=== PATIENT | male | born 1985 | race Caucasian/White ===

== ENCOUNTER → 2016-12-12 08:07 | Outpatient (CLI) | payer OTHER | END | disposition home or self-care (01) | LOC: D.NM 08:07 | DX: R10.11 Right upper quadrant pain (principal) ==

== ENCOUNTER 2017-01-17 05:14 | Day surgery (SDC) | payer OTHER ==
[~2017-01-17] VITALS: Ht 193 cm; Wt 105.2 kg
[~2017-01-17 05:14] MED LIST: IBUPROFEN800 MG PO
[2017-01-17] MEDS ORDERED: ACETAMINOPHEN500 M1 PO (05:46)
[2017-01-17 05:54] LABS: BASOPHILS 0.4 % (0-2); EOSINOPHILS 1.7 % (0-7); HEMATOCRIT 43.6 % (42.0-54.0); HEMOGLOBIN 15.6 g/dL (13.5-17.5); IMMATURE GRANULOCYTES 0.1 % (0-5); LYMPHOCYTES 47.5 % (15-50); MCHC 35.8 g/dL (31.0-37.0); MCV 86.7 fL (80.0-100.0); MEAN PLATELET VOLUME 10.1 fL (7.4-10.4); MONOCYTES 6.3 % (2-11); PLATELET COUNT 229 10x3/uL (130-400); RBC 5.03 10x6/uL (4.20-6.10); RDW 12.6 % (11.5-14.5); WBC 7.7 10x3/uL (4.8-10.8)
[2017-01-17 06:02] VITALS: BP 144/94; Ht 193 cm; Wt 105.2 kg
[2017-01-17 06:10] LABS: APTT 27.6 SECONDS (22.8-39.4); INR 0.92 (0.85-1.17); PROTIME 12.2 SECONDS (11.6-15.0)
[2017-01-17 06:25] LABS: CALC OSMOLALITY 282 mosm/kg (275-300); CALCIUM 8.8 mg/dL (8.5-10.1); CARBON DIOXIDE 27.8 mmol/L (21.0-32.0); CHLORIDE - SERUM 104 mmol/L (98-107); CREATININE - SERUM 1.1 mg/dL (0.6-1.3); GLUCOSE 94 mg/dL (74-106); POTASSIUM - SERUM 3.8 mmol/L (3.5-5.1); SODIUM 142 mmol/L (136-145); UREA NITROGEN 13 mg/dL (7-18); eGFR NON AFRICAN AMERICAN 83 mL/min (90-120)
[2017-01-17] MEDS ORDERED: HYDROCODONE-APA1 TAB PO (08:49)
--- NOTE | 2017-01-18 14:41 | OP ---
PATIENT NAME: VAL CALLAWAY MEDICAL RECORD: [id number] :87 LOCATION:D.OPS ADMISSION DATE: SURGEON: RYLAND MCCORMICK MD DATE OF OPERATION: 01/17/2017 PREOPERATIVE DIAGNOSES: 1. Chronic cholecystitis. 2. Dncic-Dozmxogos-Xbguq syndrome. 3. Asthma. POSTOPERATIVE DIAGNOSES: 1. Chronic cholecystitis. 2. Lmnpd-Olwqliarg-Tddud syndrome. 3. Asthma. PROCEDURE: Laparoscopic cholecystectomy. SURGEON: Ryland Mccormick MD. REPORT OF PROCEDURE: The patient's abdomen was prepped and draped in sterile fashion. A cutdown was made on the superior aspect of the umbilicus, 0 Vicryls were placed on the fascia bilaterally and the fascia was incised with a 15-blade. I then bluntly entered the peritoneal cavity and placed a 12-mm Ishmael port. Under direct visualization, a 5 mm trocar was placed in the epigastrium and 2 more 5-mm trocars were placed in the right subcostal region. The gallbladder was grasped and elevated. The cystic artery and duct were dissected free and I had my critical view of safety. These structures were clipped proximally and distally and ligated in standard fashion. The gallbladder was then taken off the liver bed using electrocautery and placed into the right upper quadrant. Any bleeding from the liver bed was treated with electrocautery. We irrigated out the right upper quadrant and assured there was no sign of any bleeding or bile leakage. At this point, the ports and insufflation were then removed and the gallbladder was taken out through the umbilicus. The umbilical fascia was closed with interrupted 0 Vicryls times 3. The wounds were irrigated out with normal saline and infused with 10 mL of 0.25% Marcaine with epinephrine. The skin incisions were closed with subcutaneous 5-0 Monocryl and dressed appropriately. COMPLICATIONS: None. CONDITION: Stable. ANESTHESIA: General endotracheal and local. BLOOD LOSS: Minimal. TRANSINT:[id number] Voice Confirmation ID: [id number] DOCUMENT ID: [id number] OPERATIVE REPORT [id number] VAL CALLAWAY RYLAND MCCORMICK MD at 1441 CC: DENY ALVARADO MD [id number] DICTATION DATE: 01/17/17 0858 [employer] DEPARTMENT: 01/17/17 1343 [facility] 01/17/17 [facility] [address] [id number]
== END 2017-01-17 11:00 | disposition home or self-care (01) ==
LOC: D.OPS 05:14 → D.PAN 11:30 → D.OPS 11:30
PROVIDERS: Surgery
DX: K81.1 Chronic cholecystitis (principal); J45.909 Unspecified asthma, uncomplicated; I45.6 Pre-excitation syndrome; Z01.812 Encounter for preprocedural laboratory examination